=== PATIENT | male | born 1960 | race African-American/Black ===

== ENCOUNTER 2017-03-18 14:49 | Observation (INO) | payer BC, OTHER, SELFPAY ==
[2017-03-18 15:27] LABS: #Basophils 0.1 thou/uL (0.0-0.2); #Eosinphils 0.1 thou/uL (0.0-0.7); #Lymphocytes 2.3 thou/uL (1.20-3.40); #Monocytes 0.4 thou/uL (0.11-0.59); %Basophils 1.4 % (0.0-1.0); %Lymphocytes 33.9 % (21.0-51.0); %Monocytes 5.6 % (0.0-10.0); %Neutrophils 58.1 % (42.0-75.0); Hemoglobin 13.2 g/dL (14.0-18.0); Mean Corpuscular Hemoglobin 32.7 pg (27.0-31.0); Platelet Count 243 thou/uL (130-400); RBC Distribution Width 10.8 % (11.5-14.5); Red Blood Cell (RBC) Count 4.05 mill/uL (4.70-6.10); White Blood Cell (WBC) Count 6.9 thou/uL (4.8-10.8)
--- NOTE | 2017-03-18 15:33 | RAD ---
SINGLE VIEW OF THE CHEST: Comparison: 03-18-17 History: Chest pain. Neck pain that radiates to the back and thighs. FINDINGS: Single view of the chest shows a normal sized cardiomediastinal silhouette. There is no evidence of c onsolidation, mass, or pleural effusion. The bones are unremarkable. IMPRESSION: No evidence of acute cardiopulmonary disease. POS: [facility]
[2017-03-18 15:47] LABS: ALT (SGPT) 14 U/L (8-55); AST (SGOT) 27 U/L (5-34); Alkaline Phosphatase 64 U/L (40-150); Anion Gap 16 mmol/L (10-20); BUN (Urea Nitrogen) 16 mg/dL (8.4-25.7); Bilirubin, Total 0.5 mg/dL (0.2-1.2); CK (CPK) 302 U/L (30-200); Calc. Creatinine Clearance 0 mL/min (70-130); Calcium 8.8 mg/dL (7.8-10.44); Carbon Dioxide 19 mmol/L (22-29); Chloride 105 mmol/L (98-107); Estimated GFR-MDRD 54; Globulin 3.1 g/dL (2.4-3.5); Glucose 122 mg/dL (70-105); Lipase 59 U/L (8-78); Potassium 3.8 mmol/L (3.5-5.1); Protein, Total 7.1 g/dL (6.0-8.3); Sodium 136 mmol/L (136-145)
[2017-03-18 15:58] LABS: CKMB 1.3 ng/mL (0-6.6)
[2017-03-18 16:26] LABS: Bilirubin Small (Negative); Blood, Urine Negative (Negative); Clarity CLEAR (Clear); Glucose, Urine (Dipstick) Negative (Negative); Leukocyte Trace (Negative); Nitrite Negative (Negative); Protein, Urine (Dipstick) 30 mg/dL (Neg-Trace); Specific Gravity, Urine 1.029 (1.002-1.036); pH, Urine 5.5 (5.0-9.0)
[2017-03-18 16:27] LABS: Bacteria/HPF None Seen HPF (None Seen); RBC/HPF 0-3 HPF (0-3); Squamous Epithelial 0-3 HPF (0-3); WBC/HPF 0-3 HPF (0-3)
[2017-03-18 16:30] LABS: Pathc Cast-AUWi Flag 8.13 (0-2.49)
[2017-03-18 16:38] LABS: Hyaline Casts/LPF 4-6 HYALINE CAST LPF (0-3 Hyaline)
--- NOTE | 2017-03-18 16:54 | CT ---
CT AORTOGRAM OF THE CHEST AND ABDOMEN WITH IV CONTRAST: Technique: Multiple axial tomograms were obtained through the chest and abdomen beginning at the aort ic arch and extending to the aortic bifurcation with arterial phase enhancement with multiplanar giovani nstructions and 3D post processing. History: Dissection protocol is requested. There is hypotension. Back pain. FINDINGS: The thoracic and abdominal aorta are normal caliber. There is no evidence of dissection. Minimal athe rosclerotic change is noted. No aneurysmal dilatation. Aortic branches appear unremarkable including celiac artery, superior mesentery artery and right renal artery. The left renal artery is surgically absent. The patient is post left nephrectomy. Lung bases are clear. There are a few scattered cysts s een throughout the liver. Spleen and pancreas appear unremarkable. Visualized bowel loops unremarkabl e. IMPRESSION: No evidence of aortic dissection or aneurysm. POS: [facility]
[2017-03-18] MEDS ORDERED: ISOVUE-370 76%-LOCM 1 ML ONE (17:01)
--- NOTE | 2017-03-18 18:30 | ULT ---
RIGHT UPPER QUADRANT ULTRASOUND: History: Abdominal pain and bloating. FINDINGS: Gallbladder is not well distended. There is evidence of a thickened gallbladder wall and there is at least one echogenic calculus seen in the gallbladder lumen. Technologist describes a negative Malhotra sign. Common duct is normal caliber. Liver is homogeneous. There are two small hepatic cysts which correspo nd to the CT of 03-18-17 which show two small cysts, one in the left lobe and one in the right lobe, e ach measuring approximately 1 cm. The right kidney is unremarkable. Pancreas is obscured. IMPRESSION: 1. Gallbladder is abnormal with thickened wall and gallstones identified. POS: [facility]
[2017-03-18] MEDS ORDERED: Ondansetron HCl/PF 4 MG/2 ML Vial IVP PRN (18:57)
[2017-03-18] MEDS ORDERED: Ondansetron ODT 8 MG TAB SL PRN (18:57)
[2017-03-18] MEDS ORDERED: Ondansetron ODT 8 MG TAB PO PRN (18:57)
[2017-03-18] MEDS ORDERED: Ondansetron ODT 4 MG TAB PO PRN (18:57)
[2017-03-18] MEDS ORDERED: Ondansetron ORAL SOLN. 4 MG/5 ML UDCUP PO PRN ×2 (18:57)
[2017-03-18] MEDS ORDERED: Acetaminophen 1,000 MG in Premix Bag 1 BAG IVPB PRN (19:15)
[2017-03-18] MEDS ORDERED: Guaifenesin DM 100-10/5 ML UDCUP PO PRN (20:54)
[2017-03-18] MEDS ORDERED: Senokot 8.6 MG TAB PO PRN (20:54)
[2017-03-18] MEDS ORDERED: Acetaminophen 325 MG TAB PO PRN (20:54)
[2017-03-18] MEDS ORDERED: Famotidine 20 MG TAB PO SCH (21:00)
[2017-03-18 22:07] LABS: Lactic Acid 2.1 mmol/L (0.5-2.2)
[2017-03-18 22:40] VITALS: BMI 21.2
[2017-03-18] MEDS: Sodium Chloride 0.9% 1,000 ML IV SCH (23:43)
--- NOTE | 2017-03-19 00:38 | HP ---
HISTORY OF PRESENT ILLNESS: Mr. Ambrocio is a 56-year-old black male who lives in [place] and w [facility] at the [facility]. He presents because of weakness. In addition, he has been experiencing bloating and indigestion post-prandial with back radiation and nausea. This has been going on for s everal weeks. He has not been eating well. In the emergency room, he was evaluated and he had a CT dissection protocol noting incidentally found gallstones, no evidence of dissection. His chest x-ray was unremarkable. No acute disease. Ultrasound confirmed gallstones, 6 mm bile duct. Sonographic negative Malhotra's. Sodium 136, potassium 3.8, BUN 16, creatinine 1.62. GFR 54. Liver function test s are normal. White count 13 and hemoglobin 6.9. ALLERGIES: None. SOCIAL HISTORY: Tobacco none since . ALCOHOL: None. MEDICATIONS: Nifedipine and a new medication is started for his prostate. PAST SURGICAL HISTORY: Left nephrectomy for renal cell carcinoma in . PAST MEDICAL HISTORY: Hypertension, history of renal cell carcinoma. No evidence of these. REVIEW OF SYSTEMS: Ten-point noncontributory. He had a cardiac workup in [place] in the last 2 year s that was normal. He states he had a cardiac murmur workup, it was normal. He had a benign murmur. PHYSICAL EXAMINATION: VITAL SIGNS: Blood pressure 136/74, respiratory rate 18 and heart rate 80. HEENT: Unremarkable. LUNGS: Clear to auscultation. CARDIAC: Regular rate and rhythm without murmur or gallop. ABDOMEN: Soft. Mild tenderness in the upper abdomen. No guarding, no rebound. Negative Malhotra sig n. EXTREMITIES: Unremarkable. ASSESSMENT AND PLAN: 1. Symptomatic cholelithiasis. This has been significantly bothering him, getting him an abdominal discomfort. I have recommended laparoscopic cholecystectomy. Risk of infection, bleeding, visceral and biliary injury explained, he consents. 2. Hypertension. 3. Feeling weakness. He will be admitted overnight and hydrated. I have discussed the recommendati on of laparoscopic cholecystectomy this hospitalization and Dr. Allen is in agreement that it i s okay to proceed tomorrow.
--- NOTE | 2017-03-19 00:46 | HP ---
REASON FOR ADMISSION: Sepsis, acute cholecystitis, near syncope. 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 He mentions that this in fact means that he was not able to see well. He went to the [facility] and checked his blood pressure, systolic blood pressures were 74. He soon called his and was brought here to the emergency room. He mentions that he has had abdominal discomfort soon after eating from last few days. No complaints of chest pain, palpitations, PND or orthopnea. Patient also started Flomax 2 days back for his prostate issues. The patient has had mild subjective fever, but has not really measured any at home. The patient's primary care physician is Dr. Grzegorz Etienne in [facility]. PAST MEDICAL/SURGICAL HISTORY: Hypertension, benign prostatic hypertrophy, history of left nephrectomy for a tumor in 1992, history of heart murmur. CURRENT MEDICATIONS: Procardia-XL 30 mg daily, Flomax 0.4 mg daily. ALLERGIES: No known drug allergies. PERSONAL HISTORY: Does not abuse alcohol or drugs. No history of smoking. FAMILY HISTORY: Mom of liver failure at the age of 68 years. Father in his 70s and has had history of stroke. REVIEW OF SYSTEMS: The following complete review of systems was negative, unless otherwise mentioned in the HPI or below: Constitutional: Weight loss or gain, ability to conduct usual activities. Skin: Rash, itching. Eyes: Double vision, pain. ENT/Mouth: Nose bleeding, neck stiffness, pain, tenderness. Cardiovascular: Palpitations, dyspnea on exertion, orthopnea. Respiratory: Shortness of breath, wheezing, cough, hemoptysis, fever or night sweats. Gastrointestinal: Poor appetite, abdominal pain, heartburn, nausea, vomiting, constipation, or diarrhea. Genitourinary: Urgency, frequency, dysuria, nocturia. Musculoskeletal: Pain, swelling. Neurologic/Psychiatric: Anxiety, depression. Allergy/Immunologic: Skin rash, bleeding tendency. PHYSICAL EXAMINATION: GENERAL: The patient is a 56-year-old male who is currently not in any acute distress. VITAL SIGNS: On arrival, blood pressure was 70/60, currently 106/66, pulse 84 per minute, respiratory rate 16 per minute, temperature 98.1 degrees Fahrenheit , saturating 98% on room air. NECK: Supple, no elevated JVD. HEENT: Eyes, extraocular muscles intact. Pupils are reacting to light. Oral cavity, mucous membranes are moist. No exudates or congestion. CARDIOVASCULAR: S1, S2 heard. Regular rhythm. RESPIRATORY: Air entry 1+ bilateral. No rales or rhonchi. ABDOMEN: Soft, bowel sounds heard. There is mild tenderness in right upper quadrant. No rigidity or guarding. EXTREMITIES: No peripheral edema or calf tenderness. VASCULAR SYSTEM: Peripheral pulses 1+ bilateral. No ischemic ulcerations or gangrene. CENTRAL NERVOUS SYSTEM: No gross focal deficits seen. Patient is alert, awake , and oriented well. PSYCHIATRIC: Patient's mood is euthymic. No hallucinations or delusions. LABORATORY AND X-RAY FINDINGS: White count 6.9, H&H 13 and 40, platelet count 243, MCV is 99 with 58% neutrophils. BUN 16, creatinine 1.6, serum bicarbonate 19, serum glucose 122. Lactic acid is 4.0. AST, ALT, alkaline phosphatase within normal limits, total bilirubin 0.5. CK level is 302. First set of cardiac enzymes are negative. Lipase is 59. CT dissection protocol done showed no aortic dissection or aneurysm. Ultrasound of the right upper quadrant done showed gallbladder was abnormal with thickened wall and gallstones. CLINICAL IMPRESSION AND PLAN: The patient will be admitted to telemetry under observation for sepsis with hypotension and likely acute cholecystitis. He has received nearly 3 liters of normal saline bolus in the ER. We will continue him on normal saline at 125 mL per hour. We will also start him on Levaquin. Ellis cultures have been obtained in the ER. He will be kept n.p.o. after midnight for likely surgery in the morning. Dr. Joyce, general surgeon, has seen the patient here in the ER and evaluated him for likely surgery in the morning. We will also obtain a vitamin B12 and folic acid level in view of his MCV being high. The patient states he has had a cardiac murmur and will obtain an echo with 2D Doppler for LV function and for assessing valvular structures. JURGEN
[2017-03-19] MEDS: Sodium Chloride 0.9% 1,000 ML IV SCH (04:47)
[2017-03-19 04:57] LABS: #Lymphocytes 1.6 thou/uL (1.20-3.40); #Monocytes 0.4 thou/uL (0.11-0.59); #Neutrophils 2.8 thou/uL (1.40-6.50); %Basophils 0.5 % (0.0-1.0); %Eosinophils 0.5 % (0.0-10.0); %Lymphocytes 33.1 % (21.0-51.0); %Monocytes 7.8 % (0.0-10.0); %Neutrophils 58.1 % (42.0-75.0); Hemoglobin 11.5 g/dL (14.0-18.0); Mean Corpuscular Hemoglobin 33.5 pg (27.0-31.0); Mean Corpuscular Volume 98.6 fl (80.0-94.0); Mean Platelet Volume 6.9 fL (7.4-10.4); Platelet Count 196 thou/uL (130-400); RBC Distribution Width 10.8 % (11.5-14.5); Red Blood Cell (RBC) Count 3.42 mill/uL (4.70-6.10); White Blood Cell (WBC) Count 4.8 thou/uL (4.8-10.8)
[2017-03-19 05:18] LABS: Anion Gap 12 mmol/L (10-20); BUN (Urea Nitrogen) 12 mg/dL (8.4-25.7); Calc. Creatinine Clearance 81 mL/min (70-130); Calcium 8.2 mg/dL (7.8-10.44); Carbon Dioxide 20 mmol/L (22-29); Chloride 111 mmol/L (98-107); Estimated GFR-MDRD 89; Glucose 76 mg/dL (70-105); Potassium 3.6 mmol/L (3.5-5.1); Sodium 139 mmol/L (136-145)
[2017-03-19 05:51] LABS: Folate (Folic Acid) 10.2 ng/mL (7.0-31.4)
[2017-03-19] MEDS ORDERED: Famotidine 20 MG TAB PO SCH (09:00)
[2017-03-19] MEDS ORDERED: Enoxaparin Sodium 40 MG/0.4 ML SYRINGE SC SCH (09:00)
--- NOTE | 2017-03-19 11:36 | PDOC.PN ---
- Subjective Encounter Start Date: 03/19/17 Encounter Start Time: 09:00 Subjective: feels better, no sob or dizziness -: is amb in room -: at bedside - Objective Resuscitation Status: Resuscitation Status FULL:Full Resuscitation MAR Reviewed: Yes Vital Signs & Weight: Vital Signs (12 hours) Temp Pulse Resp BP BP BP BP 03/19/17 08:00 99.7 F H 76 16 03/19/17 07:30 99.7 F H 76 16 126/64 134/71 127/58 L 03/19/17 04:11 99.3 F 74 20 117/58 L 03/19/17 00:51 77 18 111/60 Pulse Ox 03/19/17 08:00 03/19/17 07:30 96 03/19/17 04:11 96 03/19/17 00:51 Weight Weight 150 lb 12.8 oz I&O: 03/18/17 03/19/17 03/20/17 06:59 06:59 06:59 Intake Total 1089 Output Total 1950 Balance -861 Result Diagrams: 03/19/17 04:29 03/19/17 04:29 Phys Exam - Physical Examination HEENT: PERRLA, moist MMs Neck: no JVD, supple Respiratory: no wheezing, no rales Cardiovascular: RRR, no significant murmur Gastrointestinal: soft, non-tender, no distention, positive bowel sounds Musculoskeletal: no edema, pulses present Neurological: non-focal, moves all 4 limbs Psychiatric: normal affect, A&O x 3 Dx/Plan (1) Near syncope Status: Resolved (2) Acute cholecystitis Code(s): K81.0 - ACUTE CHOLECYSTITIS Status: Acute (3) Hypotension Status: Resolved (4) CKD (chronic kidney disease) stage 3, GFR 30-59 ml/min Code(s): N18.3 - CHRONIC KIDNEY DISEASE, STAGE 3 (MODERATE) Status: Chronic Comment: h/o left nephrectomy (5) BPH (benign prostatic hyperplasia) Code(s): N40.0 - BENIGN PROSTATIC HYPERPLASIA WITHOUT LOWER URINRY TRACT SYMP Status: Chronic Qualifiers: Lower urinary tract symptom presence: symptoms absent Qualified Code(s): N40.0 - Benign prostatic hyperplasia without lower urinary tract symptoms - Plan is going to OR today for lap oly -: dc plan per gen surgery advice -: ross cultures prelim is -ve -: echo for h/o ?murmur -: if pt remains in hospital today may switch to inpatient * . Review of Systems - Medications/Allergies Allergies/Adverse Reactions: Allergies Allergy/AdvReac Type Severity Reaction Status Date / Time No Known Drug Allergies Allergy Verified 03/18/17 22:31 Medications: Current Medications Acetaminophen (Tylenol) 650 mg PO Q4H PRN PRN Reason: Headache/Fever or Pain Enoxaparin Sodium (Lovenox) 40 mg SC 0900 [facility] Last Admin: 03/19/17 08:48 Dose: Not Given Famotidine (Pepcid) 20 mg PO BID [facility] Last Admin: 03/19/17 08:48 Dose: Not Given Guaifenesin/Dextromethorphan (Robitussin Dm) 15 ml PO Q4H PRN PRN Reason: Cough Acetaminophen 1,000 mg/ Device 100 mls @ 400 mls/hr IVPB Q6H PRN PRN Reason: Fever/Mild Pain Stop: 03/19/17 19:16 Levofloxacin 500 mg/ Device 100 mls @ 100 mls/hr IVPB 1800 ALMA Sodium Chloride (Normal Saline 0.9%) 1,000 mls @ 125 mls/hr IV .Q8H [facility] Last Admin: 03/19/17 04:47 Dose: 1,000 mls Ondansetron HCl (Zofran Odt) 4 mg PO Q6H PRN PRN Reason: Nausea/Vomiting Ondansetron HCl (Zofran Odt) 8 mg SL BIDPRN PRN PRN Reason: Nausea/Vomiting Ondansetron HCl (Zofran) 4 mg IVP Q6H PRN PRN Reason: Nausea/Vomiting Senna (Senokot) 2 tab PO HSPRN PRN PRN Reason: Constipation
[2017-03-19] MEDS ORDERED: Bupivacaine 0.25% HCL 30 ML VIAL ONE (12:05)
[2017-03-19] MEDS ORDERED: Lidocaine 2% w/Epinephrine 1:200K 20 ML VIAL ONE (12:05)
[2017-03-19] MEDS ORDERED: Ketorolac Tromethamine 30 MG/ML VIAL ONE (12:10)
[2017-03-19] MEDS ORDERED: Midazolam HCl 2 mg/2 ml Vial ONE (12:27)
[2017-03-19] MEDS ORDERED: Fentanyl 100 MCG/2 ML VIAL ONE ×2 (12:27→13:37)
[2017-03-19] MEDS ORDERED: Meperidine HCl/PF 25 MG/ML VIAL SLOW IVP PRN (13:22)
[2017-03-19] MEDS ORDERED: Morphine Sulfate 2 MG/ML SYRINGE SLOW IVP PRN (13:22)
[2017-03-19] MEDS ORDERED: HYDROmorphone 2 MG/ML VIAL SLOW IVP PRN (13:22)
[2017-03-19] MEDS ORDERED: Promethazine HCl 25 MG/ML VIAL SLOW IVP PRN (13:22)
--- NOTE | 2017-03-19 14:01 | OP ---
DATE OF PROCEDURE: 03/19/2017 PREOPERATIVE DIAGNOSES: Acute chronic cholecystitis and cholelithiasis. POSTOPERATIVE DIAGNOSES: Acute chronic cholecystitis and cholelithiasis. PROCEDURE PERFORMED: Laparoscopic video cholecystectomy. SURGEON: Dr. Reji Joyce. ANESTHESIA: General. Local 0.25% Marcaine, 30 mL, mixed with 2% Xylocaine with epinephrine, 20 mL. PROCEDURE IN DETAIL: The patient was taken to the operating room where under general anesthesia, abd omen was clipped of hair, prepared with chloraprep, draped in routine fashion. Local anesthetic infi ltrated into skin and subcutaneous tissue about each port site. Right midclavicular subcostal incisi on made, pneumoperitoneum to 15 mmHg obtained with the Veress needle, replacing it with a 5 port. Vi loyda laparoscope inserted. There were no adhesions in the midline. Thus, significant infraumbilical incision was made and a 5 mm port placed. Video laparoscope moved to this port. Right subxiphoid in cision was made and 11 port placed. Right lateral subcostal incision was made anterior axillary line s and 5 ports placed. Liver appeared to be normal. Gallbladder fundus grasped and reflected cephala d. Infundibulum grasped and reflected laterally. Cystic artery and duct dissected free. Critical v iew obtained with pericholecystic dissection 2/3rd of the cystic plate. Cystic artery and duct divid ed after doubly clipped proximally. Gallbladder and contents removed and submitted to Pathology. He mostasis gained with the cautery. Good hemostasis noted. Irrigant and pneumoperitoneum evacuated. All instruments removed and all skin incisions approximated with interrupted subdermal 4-0 Monocryl a nd DermaGlue applied.
[2017-03-19] MEDS ORDERED: Acetaminophen 500 MG TAB PO PRN (14:35)
[2017-03-19] MEDS ORDERED: traMADol HCl 50 MG TAB PO PRN ×2 (14:35)
[2017-03-19] MEDS ORDERED: Dexamethasone 20 MG/5 ML VIAL ONE (15:08)
[2017-03-19] MEDS ORDERED: Glycopyrrolate 0.2 MG/ML 5 ML SYRINGE ONE (15:08)
[2017-03-19] MEDS ORDERED: Lidocaine 1% PF 5 ML VIAL ONE (15:08)
[2017-03-19] MEDS ORDERED: PROPOFOL 200 MG/20 ML VIAL ONE (15:08)
[2017-03-19] MEDS ORDERED: Ondansetron HCl/PF 4 MG/2 ML Vial ONE (15:08)
[2017-03-19 16:02] VITALS: BP 148/71; TEMP 97.5
--- NOTE | 2017-03-19 20:04 | DIS ---
DATE OF ADMISSION: 03/18/2017 DATE OF DISCHARGE: 03/19/2017 DISCHARGE DISPOSITION: To home. PRIMARY DISCHARGE DIAGNOSES: The patient is status post laparoscopic cholecystectomy; hypotension on arrival, resolved. SECONDARY DISCHARGE DIAGNOSES: Chronic kidney disease, stage 2-3 with history of a left nephrectomy, stable, and almost normal creatinine at the time of discharge; history of benign prostatic hypertrop hy. PROCEDURES DONE DURING HOSPITALIZATION: The patient had a CT dissection protocol done, which showed no evidence of dissection or aneurysm. Ultrasound of the right upper quadrant done showed abnormal g allbladder with thickened wall and gallstones. Echo with 2D Doppler done showed EF of 55% to 60%, th ere was moderate to severe tricuspid regurgitation, moderately elevated pulmonary artery pressure and PA systolic pressures of 46 mmHg, ejection fraction of 55% to 60%. Blood cultures x2 preliminary re sults show no growth. Urine culture no growth. White count of 4.8, H&H 11 and 33, platelet count 19 6 with 58% neutrophils, B12 levels 863, folic acid 10.2. Discharge BUN and creatinine were 12 and 1. 0, had a lactic acid of 4.0. Initial BUN and creatinine were 16 and 1.6. DISCHARGE MEDICATIONS: Flomax 0.4 mg p.o. daily, Ultram p.r.n. for pain, Flonase nasal spray p.r.n. ALLERGIES: No known drug allergies. INPATIENT CONSULTS: Dr. Joyce for General Surgery. BRIEF COURSE DURING HOSPITALIZATION: The patient initially was brought to emergency room on 03/18/19 18 after he almost nearly passed out. On arrival here, blood pressures were 74 systolic. He was giv en 3 liters of bolus IV fluids in the ER and stabilized. Further workup revealed possible cholecysti tis. He was evaluated by Dr. Joyce and has had laparoscopic cholecystectomy done this morning. He is hemodynamically stable this morning. He has been cleared by Dr. Joyce for discharge. The patien t has moderate to severe tricuspid regurgitation and needs to have further workup of the same via his primary care physician in [facility]. He is otherwise hemodynamically stable and will be shortly discharged home. Please see a [id number] documentation for the day of discharge on [facility].
[2017-03-20] MEDS ORDERED: Polyethylene Glycol 3350 17 GM Packet PO SCH (09:00)
--- NOTE | 2017-03-24 22:42 | EKG ---
Test Reason : Blood Pressure : / mmHG Vent. Rate : 081 BPM Atrial Rate : 081 BPM P-R Int : 156 ms QRS Dur : 084 ms QT Int : 344 ms P-R-T Axes : 073 063 050 degrees QTc Int : 399 ms Normal sinus rhythm Possible Left atrial enlargement Borderline ECG Confirmed by JACLYN PEARCE ([id number]), online editor JUSTINO HAYNES ([id number]) on 03/24/2017 10:41:09 PM Referred By: Confirmed By:JACLYN PEARCE
== END 2017-03-19 20:10 | disposition home or self-care (01) ==
LOC: ERS 14:49 → ERHOLD 19:16 → 2SW 22:13
PROVIDERS: ADMIT Internal Medicine; ATTEND Internal Medicine
PROC: 0FT44ZZ Resection of Gallbladder, Percutaneous Endoscopic Approach (ICD-10-PCS; principal; 2017-03-19)
DX: K80.12 Calculus of gallbladder with acute and chronic cholecystitis without obstruction (principal); I12.9 Hypertensive chronic kidney disease with stage 1 through stage 4 chronic kidney disease, or unspecified chronic kidney disease; N18.3 Chronic kidney disease, stage 3 (moderate); N40.0 Benign prostatic hyperplasia without lower urinary tract symptoms; R55 Syncope and collapse; I95.9 Hypotension, unspecified; R01.1 Cardiac murmur, unspecified; Z85.528 Personal history of other malignant neoplasm of kidney; Z87.891 Personal history of nicotine dependence; Z79.899 Other long term (current) drug therapy; Z82.3 Family history of stroke; Z90.5 Acquired absence of kidney
CPT/HCPCS: 36415; 71045; 71275; 76705; 80048; 80053; 81003; 81015; 82550; 82553; 82607; 82746; 83605; 83690; 83735; 84484; 85025; 87040; 87086; 88304; 93005; 93306; 96361; 96365; G0378; J0131; J1100; J1885; J1956; J2001; J2250; J2405; J2704; J3010; S0020